=== PATIENT | female | born 1955 | race African-American/Black ===

== ENCOUNTER 2020-09-23 10:44 | Emergency (ER) | payer MEDICARE, OTHER ==
[~2020-09-23] VITALS: Ht 170.2 cm; Wt 86.2 kg
[2020-09-23 10:57] VITALS: BP 145/92
--- NOTE | 2020-09-23 11:00 | NUR ---
THE PATIENT BIB HER SON FOR C/O MID UPPER BACK PAIN FROM AN ABSCESS X 1 WEEK. THE PATIENT RATES PAIN 10/10. DENIES SOB. RESPIRATION REGULAR AND UNLABORED. THE PATIENT IS PROVIDED WITH WARM BLANKET. WILL CONTINUE TO MONITOR.
[2020-09-23] MEDS ORDERED: LIDOCAINE 1% INJ 50 ML MDV IJ ONE (11:30)
[2020-09-23] MEDS ORDERED: SULF1TAB48 PO (11:46)
[2020-09-23] MEDS ORDERED: CEPH500C2 PO (11:46)
--- NOTE | 2020-09-23 13:08 | NUR ---
Patient is alert and oriented x4. Denies pain. Respiration regular and unlabored. Denies SOB.Patient discharged to home in stable condition. Prescriptions handed to the patient, written and verbal after care instructions given. Patient verbalizes understanding of instruction.The patient left ER in stable condition.
== END 2020-09-23 13:09 | disposition home or self-care (01) ==
LOC: ER 10:48
DX: L02.212 Cutaneous abscess of back [any part, except buttock and flank] (principal); I10 Essential (primary) hypertension; J45.909 Unspecified asthma, uncomplicated; E11.9 Type 2 diabetes mellitus without complications; Z79.899 Other long term (current) drug therapy
CPT/HCPCS: 10060; 76604; 99284; A6407